=== PATIENT | female | born 1980 | race African-American/Black ===

== ENCOUNTER 2017-08-20 05:22 | Emergency (ER) | payer SELFPAY ==
[~2017-08-20] VITALS: Ht 170.2 cm; Wt 84.0 kg
[~2017-08-20 05:22] MED LIST: HYDR-3511
[2017-08-20] MEDS ORDERED: ONDANSETRON HCL 4MG/2ML VIAL IV STA (05:33)
[2017-08-20] MEDS ORDERED: SODIUM CHLORIDE 0.9% 1,000 ML IV ONE (05:33)
[2017-08-20] MEDS ORDERED: TETANUS, DIPHTHERIA, PERTUSSIS VAC/PF 0.5ML (>7YR OLD) IM ONE (05:45)
[2017-08-20] MEDS ORDERED: IOHEXOL-300 100 ML BOTTLE ONE (06:13)
[2017-08-20] MEDS ORDERED: BACITRACIN ZINC OINT UDPKT TOP ONE (06:15)
[2017-08-20] MEDS ORDERED: LORAZEPAM 2MG/ML CPJ IV ONE (06:30)
[2017-08-20] MEDS ORDERED: MORPHINE SULFATE 4 MG/ML CPJ (NOT FOR IM USE) IV ONE (06:30)
[2017-08-20] MEDS ORDERED: ONDANSETRON HCL 4MG/2ML VIAL IV ONE (06:30)
[2017-08-20 06:57] VITALS: BP 102/69
[2017-08-20 07:14] LABS: BASOPHILS % 0.3 % (0.0-2.0); EOSINOPHILS % 0.1 % (0.0-5.0); HEMATOCRIT. 33.5 % (36.0-48.0); HEMOGLOBIN. 11.1 g/dL (12.0-16.0); MEAN CORPUSCULAR HEMOGLOBIN 33.1 pg (28.0-32.0); MEAN CORPUSCULAR VOLUME 99.4 fL (81.0-99.0); MEAN PLATELET VOLUME 6.6 fl (7.4-10.4); MONOCYTES % 4.3 % (2.0-8.0); NEUTROPHILS % 85.3 % (40.0-76.0); PLATELET 560 x1000/uL (130-400); RED BLOOD CELL COUNT 3.37 mill/uL (4.2-5.4); RED CELL DISTRIBUTION WIDTH 13.1 % (11.6-14.6)
[2017-08-20 07:18] LABS: INR 1.1; PROTHROMBIN TIME 11.4 sec (9.4-11.6)
[2017-08-20 07:29] LABS: CARBON DIOXIDE 23 mEq/L (21-32); CHLORIDE 110 mEq/L (98-107); ETHANOL BLOOD 150 mg/dL
[2017-08-20 07:45] LABS: HCG SCREEN NEGATIVE
== END 2017-08-20 07:46 | disposition short-term general hospital (02) ==
LOC: ER 07:25 → CANBEDREQ 07:49
DX: S31.611A Laceration without foreign body of abdominal wall, left upper quadrant with penetration into peritoneal cavity, initial encounter (principal); S36.232A Laceration of tail of pancreas, unspecified degree, initial encounter; Z90.49 Acquired absence of other specified parts of digestive tract; N83.201 Unspecified ovarian cyst, right side; X99.9XXA Assault by unspecified sharp object, initial encounter; Y93.89 Activity, other specified; Y92.89 Other specified places as the place of occurrence of the external cause
CPT/HCPCS: 36415; 71260; 74177; 80053; 83690; 84703; 85025; 85610; 86850; 86900; 86901; 90471; 90715; 93005; 96361; 96374; 96375; 99285; G0482; J2060; J2270; J2405; Q9967; Z7610; J7030

== ENCOUNTER 2023-07-10 09:02 | Emergency (ER) | payer OTHER ==
[~2023-07-10] VITALS: Ht 170.2 cm; Wt 78.0 kg
[~2023-07-10 09:02] MED LIST changes: -HYDR-3511; +HYDR-3512
[2023-07-10 09:04] VITALS: TEMP 98.5; O2SAT 98
[2023-07-10 11:18] LABS: BASOPHILS % 0.4 % (0.0-2.0); DIFFERENTIAL COMMENT 0; EOSINOPHILS % 1.2 % (0.0-5.0); HEMATOCRIT. 43.3 % (36.0-48.0); HEMOGLOBIN. 14.3 g/dL (12.0-16.0); LYMPHOCYTES % 26.8 % (20.0-50.0); MEAN CORPUSCULAR HEMOGLOBIN 34.1 pg (28.0-32.0); MEAN CORPUSCULAR VOLUME 103.4 fL (81.0-99.0); MEAN PLATELET VOLUME 7.3 fl (7.4-10.4); MONOCYTES % 8.5 % (2.0-8.0); NEUTROPHILS % 63.1 % (40.0-76.0); PLATELET 594 x1000/uL (130-400); RED BLOOD CELL COUNT 4.19 mill/uL (4.2-5.4); RED CELL DISTRIBUTION WIDTH 13.6 % (11.6-14.6); WHITE BLOOD COUNT 10.2 x1000/uL (4.5-11.0)
[2023-07-10 11:37] LABS: ALANINE AMINOTRANSFERASE 11 IU/L (10-49); ALBUMIN 4.2 g/dL (3.2-4.8); ASPARTATE AMINOTRANSFERASE 14 IU/L (<34); BILIRUBIN TOTAL 0.5 mg/dL (0.1-1.0); CALCIUM 9.4 mg/dL (8.7-10.4); CARBON DIOXIDE 25 mEq/L (21-32); CHLORIDE 107 mEq/L (98-107); CREATININE 0.6 mg/dL (0.6-1.0); GLUCOSE 89 mg/dL (70-105); POTASSIUM 4.4 mEq/L (3.5-5.1); PROTEIN TOTAL 7.3 g/dL (6.0-8.3); SODIUM 139 mEq/L (136-145); UREA NITROGEN BLOOD 7 mg/dL (9-23)
[2023-07-10 11:45] LABS: HCG SCREEN NEGATIVE
[2023-07-10 11:55] LABS: TROPONIN I HIGH SENSITIVITY < 4 ng/L (3.0-34)
[2023-07-10 12:45] VITALS: BP 146/80; PULSE 90; RESP 18
[2023-07-10] MEDS ORDERED: KETOROLAC 30MG/ML VIAL IM NR (12:45)
[2023-07-10] MEDS ORDERED: DOCU-150 PO (12:48)
[2023-07-10] MEDS ORDERED: HYDR-4009 PO (12:48)
[2023-07-10] MEDS ORDERED: LURA40TA4 PO (12:48)
[2023-07-10 13:57] LABS: TROPONIN I HIGH SENSITIVITY < 4 ng/L (3.0-34)
== END 2023-07-10 14:32 | disposition home or self-care (01) ==
LOC: ER 09:02
DX: R07.9 Chest pain, unspecified (principal); F41.9 Anxiety disorder, unspecified; F19.90 Other psychoactive substance use, unspecified, uncomplicated
CPT/HCPCS: 80053; 81025; 84703; 85025; 85379; 84484; 36415; 71045; 93005; 96372; 99285; J1885; Z7610 ×3